=== PATIENT | female | born 1985 | race Caucasian/White ===

== ENCOUNTER 2020-06-27 11:41 | Emergency (ER) | payer OTHER ==
[~2020-06-27] VITALS: Ht 160 cm; Wt 63.5 kg
[2020-06-27] MEDS ORDERED: KEFLEX500 M1 PO (13:08)
[2020-06-27 13:50] VITALS: BP 119/79
== END 2020-06-27 13:50 | disposition home or self-care (01) ==
LOC: ER 11:41
DX: S61.213A Laceration without foreign body of left middle finger without damage to nail, initial encounter (principal); W27.0XXA Contact with workbench tool, initial encounter; Y93.89 Activity, other specified; Y92.89 Other specified places as the place of occurrence of the external cause; Y99.0 Civilian activity done for income or pay